=== PATIENT | male | born 2000 | race Caucasian/White ===

== ENCOUNTER 2024-03-23 18:00 | Emergency (ER) | payer BC, SELFPAY ==
[2024-03-23 18:10] VITALS: BP 149/101
[2024-03-23 19:00] VITALS: BP 144/84
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
[2024-03-23] MEDS: PERCOCET 5/325 2 TABLET PO (19:58)
[2024-03-23 20:00] VITALS: BP 142/87
[2024-03-23 21:00] VITALS: BP 135/80
[2024-03-23] MEDS: MOTRIN 600 MG PO (21:04)
== END 2024-03-23 22:29 | disposition home or self-care (01) ==
LOC: EMR 18:00
PROVIDERS: EMERGENCY PHYSICIAN Emergency Medicine; FAMILY PHYSICIAN Family Medicine
DX: J93.9 Pneumothorax, unspecified (principal)
CPT/HCPCS: 99283; 71046; 71101

== ENCOUNTER → 2024-03-26 13:24 | Outpatient (REF) | payer BC, SELFPAY | LOC: RAD 13:24 | PROVIDERS: ATTENDING PHYSICIAN Family Medicine | DX: S27.0XXA Traumatic pneumothorax, initial encounter (principal) | CPT/HCPCS: 71046 ==

== ENCOUNTER → 2024-04-08 12:05 | Outpatient (REF) | payer BC, SELFPAY | LOC: RAD 12:05 | PROVIDERS: ATTENDING PHYSICIAN Family Medicine | DX: S27.0XXA Traumatic pneumothorax, initial encounter (principal) | CPT/HCPCS: 71046 ==

== ENCOUNTER 2024-05-20 19:30 | Emergency (ER) | payer BC, SELFPAY ==
[2024-05-20 19:31] VITALS: BP 158/104
[2024-05-20 21:43] VITALS: BP 142/87; BMI 32.0
--- NOTE | 2024-05-20 22:17 | ED.GENMED ---
History of Present Illness
General
Chief Complaint: Headache
Source: patient
Exam Limitations: none
Time Seen by Provider: 05/20/24 21:44
History of Present Illness
History of Present Illness:
This is a 23 year old male that comes in with c/o headache. States that this has been going on for a year. States that there is a new symptom every time. States that when he gets up in the morning it is like a monkey on a wheel and his mind never
stops. States that he feels a little lightheaded. States that he also has urinary burning. Denies any fever, chills, chest pain, SOB, abd pain, nausea, vomiting, diarrhea.
Past History
Past History
ED Past Medical History: HTN, Psychiatric (Anxiety) and Other (Headache, )
ED Past Surgical History: Orthopedic (Right Patella tendon repair)
Social History
Tobacco: Non-smoker
Alcohol: Daily (Beer 10)
Drug: Marijuana
Personal: Single
Living: with family
Review of Systems
Review of Systems
All Other Systems: ROS reviewed and negative except as documented in HPI and ROS
Constitutional: Reports no symptoms; Denies fever or chills
EENT: Reports no symptoms
Respiratory: Reports no symptoms; Denies cough or trouble breathing
Cardiac: Reports no symptoms; Denies chest pain
ABD/GI: Reports no symptoms; Denies abdominal pain, nausea, vomiting or diarrhea
: Reports dysuria; Denies frequency or urgency
Musculoskeletal: Reports no symptoms
Skin: Reports no symptoms
Neurological: Reports headache and other (Lightheaded); Denies dizzy
Psychiatric: Reports anxiety; Denies suicidal
Phy Exam
General Physical Exam
General Presentation: no apparent distress
General age: appears stated age
General Skin: warm and dry
General Habitus: normal
General Mental: alert
General Hydration: appears well hydrated
ENT Exam
ENT Exam: TM's normal, pharynx normal and neck supple
Eye Exam
Eye Exam: EOMI
Cardiovascular Exam
Cardiovascular Exam: no edema, no murmur, normal peripheral pulses and tachycardia
Pulmonary Exam
Pulmonary Exam: lungs clear, no respiratory distress, no rales, chest non tender, no crackles, no rhonchi, no wheezing and no cough
Gastrointestinal Exam
Gastrointestinal Exam: normal bowel sounds, non tender, soft, no organomegaly, no pulsatile mass and non distended
Musculoskeletal Exam
Musculoskeletal Exam: full ROM and no edema
Skin Exam
Skin Exam: normal color, warm/dry, no rash and no petechia
Psychiatric Exam
Psychiatric Exam: normal mood/affect
Course
Orders/Labs/Results
Orders:
Orders
05/20/24 22:15
Crisis Consult Urgent
Reason for Consult: head always going. feels he is here but not here
05/20/24 22:16
Dexamethasone Sod Phosphate [Decadron] 20 mg IV NOW STA
Diphenhydramine [Benadryl] 25 mg IV NOW STA
Ketorolac [Toradol] 30 mg IV NOW STA
Prochlorperazine [Compazine] 5 mg IV NOW STA
05/20/24 22:17
Acetaminophen [Tylenol] 1,000 mg PO NOW STA
05/20/24 22:22
CT Head W/o Iv Contrast Urgent
Comment:
Reason For Exam: Headache
05/20/24 22:24
Complete Blood Count/With Diff Urgent
Comprehensive Metabolic Panel Urgent
05/20/24 23:43
Fentanyl, Urine Urgent
Urinalysis Reflex To Culture Urgent
Date Specimen was Collected: 05/20/24
Time Specimen was Collected: 22:19
Urine Drug Abuse Screen Urgent
Date Specimen was Collected: 05/20/24
Time Specimen was Collected: 22:36
Urine Microscopic Reflex Cult Urgent
Urine Culture Urgent
MARIAM Source: U
Specimen Description:
Date Specimen was Collected: 05/20/24
Time Specimen was Collected: 22:19
Abnormal Lab Results
05/20/24 05/20/24
22:24 23:43
Absolute Monos (auto) 0.8 H 10^3/uL
(0.1-0.6)
BUN 7 L mg/dl
(9-20)
Albumin 5.1 H g/dl
(3.5-5.0)
Urine Ketones 3+ A
(Negative)
Leukocyte Esterase Rfl Trace A
(Negative)
Urine WBC (Reflex) 11-15 A /HPF
(0-5)
Urine Bacteria (Reflex) Few A
(Negative)
U Benzodiazepines Scrn Positive H
(Negative)
U Marijuana (THC) Screen Positive H
(Negative)
05/20/24 22:24
05/20/24 22:24
Urine questionable but would wait till culture to treat. Urine positive for marijuana and Benzo's
Vital Signs
Initial and Last Documented VS:
Initial Vital Signs
Temp Pulse Resp BP Pulse Ox
97.9 F 105 22 158/104 98
05/20/24 19:31 05/20/24 19:31 05/20/24 19:31 05/20/24 19:31 05/20/24 19:31
Last Documented Vital Signs
Temp Pulse Resp BP Pulse Ox
97.9 F 101 18 142/87 100
05/20/24 19:31 05/20/24 21:43 05/20/24 21:43 05/20/24 21:43 05/20/24 21:43
MDM/Problems Addressed
Differential Diagnosis Includes:
Anxiety, Chronic headache
MDM/Problems Addressed:
This is a 23 year old male that comes in with c/o headache. States that this has been going on for a year and that he feels like his mind is racing.
Will check labs, Medicate for headache pain and have Crisis see patient.
Patient was seen by Crisis. Patient was given out patient information. Patient left before given his Discharge instruction. Patient had told the nurse that he was feeling better.
Chronic conditions affecting care: Psychiatric illness
Acute Exacerbation and/or Progression of Chronic Illness:
Headaches
Acute Exacerbation and/or Progression of Chronic Illness: Psychiatric illness
*Radiology
Radiology exam reviewed: radiology read reviewed (CT head-No acute intracranial hemorrhage, midline shift, or acute loss of benitez-white differentiation. )
*Pulse Oximetry
Patient hypoxic: no
*EKG
Interpreted by ED Provider?: NA
Rate: EKG- N/A
*Tuckpointer Cleaner Caulker Interpretation
Rate: Tuckpointer Cleaner Caulker- N/A
*Critical Care Note
Total Time (30-74mins, 75-104mins- exclusive of procedures): Not Applicable
ED Attending Note
-
Portions of this chart may have been created with voice recognition software.� Occasional wrong word or��sound alike� substitutions may have occurred due to the inherent limitations of voice recognition software.
Discharge Plan
Departure
Patient Disposition: Home (Routine Discharge)
Date of Disposition: 05/21/24
Time of Disposition: 01:13
Patient with high blood pressure during this ER visit?: Yes
Condition: Good
Covid-19: Not Applicable
Discharge Problem:
Headache, Anxiety
Instructions: BLOOD PRESSURE, Headache, Adult (DC), Anxiety, Adult ED
Prescriptions:
No Action
lorazepam [Ativan] 1 mg Tablet
1 mg PO DAILY PRN (Reason: anxiety)
Referrals:
Madina Santos MD [Family Provider] - Call in 1-3 days for appt
Adama Rojo MD [Active] - Call in 1-3 days for appt
Activity Restrictions/Additional Instructions:
Patient left without discharge instruction.
Interventions
Interventions:
*Risk Screen - Suicide Last Done: 05/20/24 21:43
*General Assessment Last Done: 05/20/24 19:31
*Neglect/Abuse Screening Last Done: 05/20/24 21:43
ED- Fall Risk Assessment Last Done: 05/20/24 21:43
*ED COVID-19 Vaccine History Last Done: 05/20/24 19:31
ED- Neurological Assessment Last Done: 05/20/24 21:43
Discharge Date and Time
Print Language: GREENLANDIC
[2024-05-20] MEDS: TYLENOL 1000 MG PO (22:28)
[2024-05-20] MEDS: DECADRON 20 MG IV (22:29)
[2024-05-20] MEDS: TORADOL 30 MG IV (22:29)
[2024-05-20] MEDS: BENADRYL 25 MG IV (22:29)
[2024-05-20] MEDS: COMPAZINE 5 MG IV (22:32)
[2024-05-20 22:42] LABS: % Basophils 0.9 % (0-2); % Eosinophils 1.7 % (0-6); % Immature Granulocytes 0.3 % (0-0.5); % Lymphocytes 29.2 % (20.5-51.1); % Monocytes 8.6 % (1.7-9.3); % Neutrophils 59.3 % (42.2-75.2); Absolute Basophils 0.1 10^3/uL (0-0.2); Absolute Eosinophils 0.2 10^3/uL (0-0.7); Absolute Lymphocytes 2.7 10^3/uL (1.2-3.4); Absolute Monocytes 0.8 10^3/uL (0.1-0.6); Absolute Neutrophils 5.5 10^3/uL (1.4-6.5); Hematocrit 39.4 % (39.0-52.0); Hemoglobin 14.3 g/dL (13.0-18.0); Mean Corp Hgb Conc. 36.3 g/dL (33.0-37.0); Mean Corpuscular Hgb 29.4 pg (27.0-31.0); Mean Corpuscular Volume 81.1 fL (80.0-94.0); Mean Platelet Volume 10.3 fL (7.4-10.4); Nucleated Red Blood Cells % 0 % (-); Platelet Count 310 10^3/uL (130-400); Red Blood Cell Count 4.86 10^6/uL (4.70-6.10); Red Cell Dist. Width 12.4 % (11.5-14.5); White Blood Cell Count 9.3 10^3/uL (4.8-10.8)
[2024-05-20 23:05] LABS: ALT (SGPT) 15 U/L (0-50); AST (SGOT) 23 U/L (17-59); Albumin 5.1 g/dl (3.5-5.0); Alkaline Phosphatase 81 U/L (38-126); Blood Urea Nitrogen 7 mg/dl (9-20); Carbon Dioxide 26 mmol/L (22-30); Chloride 100 mmol/L (98-107); Estimated Creatinine Clearance > 125 ml/min; Glucose 97 mg/dl (70-99); Potassium 3.7 mmol/L (3.5-5.1); Sodium 137 mmol/L (135-145); Total Bilirubin 0.8 mg/dl (0.2-1.3); Total Protein 7.7 g/dl (6.3-8.2); eGFR > 60.00
--- NOTE | 2024-05-20 23:49 | EDRN ---
Patient reports feeling better then when he originally came in, resting with mom at bedside, urine sent.
[2024-05-20 23:51] LABS: Urine Albumin Negative (Neg - Trace); Urine Bilirubin Negative (Negative); Urine Character Clear (Clear); Urine Color Yellow; Urine Glucose Negative (Negative); Urine Ketone 3+ (Negative); Urine Leukocyte Trace (Negative); Urine Nitrite Negative (Negative); Urine Occult Blood Negative (Negative); Urine Specific Gravity 1.015 (<1.030); Urine Urobilinogen Negative (Neg - 1+)
[2024-05-21 00:30] LABS: Amphetamines Negative (Negative); Barbiturates Negative (Negative)
--- NOTE | 2024-05-21 00:30 | EDRN ---
Patient out of room asking about leaving, BLANCA Elizalde was informed
[2024-05-21 00:31] LABS: Benzodiazepines Positive (Negative); Buprenorphine Negative (Negative); Cocaine Negative (Negative); Marijuana Positive (Negative); Methadone Negative (Negative); Methamphetamines Negative (Negative); Opiates Negative (Negative); Phencyclidine Negative (Negative); Tricyclic Antidepressants Negative (Negative)
[2024-05-21 00:37] LABS: Urine Bacteria Few (Negative); Urine Mucus Few; Urine Red Blood Cell 0-2 /HPF (0-2)
[2024-05-21 00:38] LABS: Urine Squamous Cell 0-2 /LPF (Few)
[2024-05-21 00:45] LABS: Fentanyl, Urine Negative (Negative)
--- NOTE | 2024-05-21 01:02 | EDRN ---
Patient back out of room asking about leaving, did not want to stay, informed him that the nurse practitioner will be in to speak with him but is dealing with a critical patient, patient still wanting to leave, removed patients IV and patient
leaving with his mother, patient aware can come back if needed, ambulated out of department without any difficulty.
== END 2024-05-21 01:23 | disposition home or self-care (01) ==
LOC: EMR 19:30
PROVIDERS: Clinical Nurse Specialist Family Health; EMERGENCY PHYSICIAN Emergency Medicine; FAMILY PHYSICIAN Family Medicine
DX: R51.9 Headache, unspecified (principal); I10 Essential (primary) hypertension; F41.9 Anxiety disorder, unspecified
CPT/HCPCS: 99284; 96374; 96375; 70450; 80053; 80306; 80307; 81003; 81015; 85025; 87086